=== PATIENT | female | born 1985 | race Caucasian/White ===

== ENCOUNTER 2019-04-26 08:40 | Emergency (ER) | payer OTHER ==
[~2019-04-26] VITALS: Ht 160 cm; Wt 110.4 kg
--- NOTE | 2019-04-26 08:50 | NUR ---
PT AMB TO ER BED 2
--- NOTE | 2019-04-26 08:50 | NUR ---
Neel isaac in [facility] - 04/26/19 at 0856 by [email or web address] PT AMB TO ER BED 2
[2019-04-26 08:55] VITALS: BP 122/87
--- NOTE | 2019-04-26 08:55 | NUR ---
PATIENT AMBULATED TO BED 2 AT THIS TIME.
--- NOTE | 2019-04-26 09:01 | NUR ---
PT BIB SELF C/O DIARRHEA, N/V, LOW ABD CRAMPING, BODYS ACHES X 2-3 DAYS, PAIN 6/10. UADONE-HCG NEG, SKIN IS INTACT, PINK/WARM/DRY; AAOX4, PERRL, WITH EVEN AND STEADY GAIT; LUNGS CLEAR BL, BREATHING UNLABORED; HR EVEN AND REGULAR, BL PERIPHERAL PULSES PRESENT; BS ACTIVE X4, NO TENDERNESS TO PALPATION. PT DENIES ANY FEVER, CP, SOB, OR COUGH AT THIS TIME; PT STATES 6/10 PAIN AT THIS TIME; VSS; PATIENT POSITIONED FOR COMFORT; HOB ELEVATED; BEDRAILS UP X2; BED DOWN. HX-THYROID
[2019-04-26] MEDS ORDERED: NACL 0.9% 1,000 ML IV SCH (09:13)
[2019-04-26 09:40] LABS: BASOPHILS % (AUTO) 0.3 % (0.0-2.0); EOSINOPHILS % (AUTO) 0.6 % (0.0-4.0); HEMATOCRIT 41.2 % (36-48); HEMOGLOBIN 14.1 g/dL (12.0-16.0); LYMPHOCYTES # (AUTO) 0.9 K/uL (2.5-16.5); LYMPHOCYTES % (AUTO) 14.6 % (20.5-51.1); MEAN CORPUSCULAR HEMOGLOBIN 29 pg (27-31); MEAN CORPUSCULAR HGB CONC 34 g/dL (33-37); MEAN CORPUSCULAR VOLUME 85.2 fL (80-94); MONOCYTES # (AUTO) 0.6 K/uL (0.8-1.0); NEUTROPHILS # (AUTO) 4.9 K/uL (1.8-7.7); NEUTROPHILS % (AUTO) 74.5 % (42.2-75.2); PLATELET COUNT (AUTO) 222 K/uL (140-450); RED BLOOD CELL COUNT(AUTO) 4.83 MIL/uL (4.20-5.40); RED CELL DISTRIBUTION WIDTH 13.8 % (11.6-13.7); WHITE BLOOD COUNT (AUTO) 6.5 K/uL (4.8-10.8)
[2019-04-26 10:09] LABS: APPEARANCE,URINE HAZY (CLEAR); BILIRUBIN,URINE NEGATIVE (NEGATIVE); BLOOD, URINE 3+ (NEGATIVE); COLOR,URINE RED (YELLOW); LEUKOCYTE ESTERASE ,URINE TRACE (NEGATIVE); NITRITE, URINE NEGATIVE (NEGATIVE); PH,URINE 5.5 (5.0-9.0); UGLUCOSE NEGATIVE (NEGATIVE)
[2019-04-26 10:27] LABS: WBC,URINE 0-5 /HPF (0-5)
[2019-04-26 10:37] LABS: ANION GAP 14.4 (8-16); CARBON DIOXIDE 26.1 mmol/L (21-32); CREATININE 0.7 mg/dL (0.6-1.3); POTASSIUM 3.5 mmol/L (3.5-5.1)
[2019-04-26 11:01] LABS: ALBUMIN 3.9 g/dL (3.4-5.0); TOTAL BILIRUBIN 0.8 mg/dL (0.0-1.0)
[2019-04-26 11:51] VITALS: BP 113/77
--- NOTE | 2019-04-26 11:51 | NUR ---
Patient discharged with v/s stable. Written and verbal after care instructions given and explained. Patient alert, oriented and verbalized understanding of instructions. Ambulatory with steady gait. All questions addressed prior to discharge. ID band removed. Patient advised to follow up with PMD. Rx of BENTYL AND ZOFRAN given. Patient educated on indication of medication including possible reaction and side effects. Opportunity to ask questions provided and answered.
== END 2019-04-26 11:51 | disposition home or self-care (01) ==
LOC: MED 08:40
DX: A08.4 Viral intestinal infection, unspecified (principal); Z86.39 Personal history of other endocrine, nutritional and metabolic disease
CPT/HCPCS: 36415; 71045; 80053; 81001; 81025; 82553; 83605; 85025; 87040; 87086; 93005; 96360; 99284; J7030; Q0092

== ENCOUNTER 2019-08-17 10:42 | Emergency (ER) | payer OTHER ==
[~2019-08-17] VITALS: Ht 157.5 cm; Wt 105.7 kg
[2019-08-17 10:50] VITALS: BP 149/101
--- NOTE | 2019-08-17 10:56 | NUR ---
PATIENT AMBULATED WITH STEADY GAIT TO BED 2.
--- NOTE | 2019-08-17 11:20 | NUR ---
34/F BIB FAMILY C/O NAUSEA & DIZZINESS X4 DAYS . MED HX: THYROID BUT STOPPED TAKING HER MEDICATION MONTHS AGO. PATIENT STATES PAIN OF 0/10 AT THIS TIME. PATIENT POSITIONED FOR COMFORT; HOB ELEVATED; BEDRAILS UP X1; BED DOWN. ER MD MADE AWARE OF PT STATUS.
--- NOTE | 2019-08-17 11:20 | NUR ---
Note vinaynelly in EDM - 08/17/19 at 1209 by MED1 C/O DIZZINESS X4 DAYS ACCOMPANIED BY NAUSEA. PT STATES SHE HAS HAD ALOT OF SINUS PRESSURE OVER THE LAST WEEK. DENIES FEVER, V/D. PT RECEIVED "DIFENDOL" INJECTION IN [facility] FOR [facility]. HX OF THYROID PROBLEMS BUT STOPPED TAKING HER MEDICATION MONTHS AGO, DOES NOT KNOW NAME OF MEDICATION OR IF IT WAS HYPO/HYPER. HX: "THYROID" PROBLEMS
--- NOTE | 2019-08-17 12:26 | NUR ---
Patient being evaluated by DR MARTÍNEZ at bedside.
[2019-08-17] MEDS ORDERED: MECLIZINE 25 MG TAB PO ONE (12:30)
[2019-08-17 13:06] VITALS: BP 123/90
--- NOTE | 2019-08-17 13:06 | NUR ---
Patient discharged with v/s stable. Written and verbal after care instructions given and explained. Patient alert, oriented and verbalized understanding of instructions. Ambulatory with steady gait. All questions addressed prior to discharge. ID band removed. Patient advised to follow up with PMD. Rx of SUDAFED, MOTRIN & PREDNISONE given. Patient educated on indication of medication including possible reaction and side effects. Opportunity to ask questions provided and answered.
== END 2019-08-17 13:06 | disposition home or self-care (01) ==
LOC: MED 10:42
DX: H81.10 Benign paroxysmal vertigo, unspecified ear (principal); J32.9 Chronic sinusitis, unspecified; E07.9 Disorder of thyroid, unspecified
CPT/HCPCS: 81002; 81025; 99283; J8597